=== PATIENT | male | born 1995 | race Caucasian/White ===

== ENCOUNTER 2016-06-08 21:19 | Inpatient (IN) | payer OTHER ==
[~2016-06-08] VITALS: Ht 172.7 cm; Wt 113.0 kg
[2016-06-08] MEDS ORDERED: morphine 4 MG/ML VIAL IV STA (21:57)
[2016-06-08] MEDS ORDERED: SOD CHLORIDE 0.9% 1,000 ML IV STA (21:57)
[2016-06-08] MEDS ORDERED: ONDANSETRON 4 MG INJ IV STA (21:57)
--- NOTE | 2016-06-08 22:00 | ERD ---
ER Documentation Chief Complaint Date/Time DATE: 06/08/16 TIME: 21:59 Chief Complaint Right-sided abdominal pain today, vomiting HPI 21-year-old male presents here in emergency department for complaints of right lower quadrant abdominal pain started today with vomiting. Patient describes the pain as sharp pain, 6/10 scale, he radiates from the right lower quadrant to the right upper quadrant area. Patient's vomiting also. Patient does not have any blood in the vomit. Patient does not have any diarrhea or constipation. Patient apparently flank pain. Patient does not have any fever or chills. Patient does not have any sick contacts. Patient does not have any constipation. Patient denies hematuria or dysuria. Patient did not take any medications to help with symptoms. ROS All systems reviewed and are negative except as per history of present illness. Medications Home Meds Reported Medications [none] Unknown Strength No Conflict Check 06/08/16 Allergies Allergies: Coded Allergies: No Known Allergy (Unverified , 06/08/16) PMhx/Soc Medical and Surgical Hx: pt denies Medical Hx History of Surgery: Yes (Left knee surgery) Anesthesia Reaction: No Hx Neurological Disorder: No Hx Respiratory Disorders: No Hx Cardiac Disorders: No Hx Psychiatric Problems: No Hx Miscellaneous Medical Probl: No Hx Alcohol Use: Yes (occassional drinker) Hx Substance Use: Yes (marijuana) Hx Tobacco Use: No Smoking Status: Current some day smoker FmHx Family History: No coronary disease, No diabetes, No other Physical Exam Vitals Vital Signs Date Time Temp Pulse Resp B/P Pulse Ox O2 Delivery O2 Flow Rate FiO2 06/08/16 21:22 98.9 89 18 126/87 100 Physical Exam GENERAL: The patient is well developed and appropriate for usual state of health, in no apparent distress. CHEST: Clear to auscultation bilaterally. There are no rales, wheezes or rhonchi. HEART: Regular rate and rhythm. No murmurs, clicks, rubs or gallops. No S3 or S4. ABDOMEN: Soft, right lower quadrant tenderness noted. Good bowel sounds. No rebound or guarding. No gross peritonitis. No gross organomegaly or masses. No Douglas sign. BACK: No midline or flank tenderness. EXTREMITIES: Equal pulses bilaterally. There is no peripheral clubbing, cyanosis or edema. No focal swelling or erythema. Full range of motion. Grossly neurovascularly intact. NEURO: Alert and oriented. Cranial nerves 2-12 intact. Motor strength in all 4 extremities with 5/5 strength. Sensation grossly intact. Normal speech and gait. SKIN: There is no apparent rash or petechia. The skin is warm and dry. HEMATOLOGIC AND LYMPHATIC: There is no evidence of excessive bruising or lymphedema. No gross cervical, axillary, or inguinal lymphadenopathy. Result Diagram: 06/08/16220906/08/162209 Results 24 hrs Laboratory Tests Test 06/08/16 22:08 06/08/16 22:10 Urine Bilirubin NEGATIVE Urine Clarity CLEAR Urine Color LT. YELLOW Urine Glucose NEGATIVE% Urine Hemoglobin NEGATIVE Urine Ketones 15 Urine Leukocyte Esterase NEGATIVE Urine Nitrite NEGATIVE Urine Specific [place] 1.015 Urine Total Protein NEGATIVE Urine Urobilinogen 1.0 E.U./dL Urine pH 7.5 Alanine Aminotransferase (ALT/SGPT) 40IU/L Albumin 5.1g/dl Albumin/Globulin Ratio 1.30 Alkaline Phosphatase 68IU/L Anion Gap 20 Aspartate Amino Transf (AST/SGOT) 30IU/L Blood Urea Nitrogen 11mg/dl Calcium Level 10.2mg/dl Carbon Dioxide Level 24mmol/L Chloride Level 102mmol/L Creatinine 0.86mg/dl Direct Bilirubin 0.00mg/dl Globulin 3.90g/dl Glucose Level 106mg/dl Hematocrit 42.9% Hemoglobin 15.1g/dl Indirect Bilirubin 0.6mg/dl Lipase 55U/L Mean Corpuscular Hemoglobin 30.9pg Mean Corpuscular Hemoglobin Concent 35.2g/dl Mean Corpuscular Volume 87.9fl Mean Platelet Volume 9.3fl Platelet Count 42646^3/UL Potassium Level 3.3mmol/L Red Blood Count 4.8810^6/ul Red Cell Distribution Width 12.1% Sodium Level 143mmol/L Total Bilirubin 0.6mg/dl Total Protein 9.0g/dl White Blood Count 22.110^3/ul Current Medications Medications (Trade) Dose Ordered Sig/Katerina Route PRN Reason Start Time Stop Time Status Last Admin Dose Admin Sodium Chloride (NS) 1,000 ml @ 1,000 mls/hr Q1H STAT IV 06/08/16 21:57 06/08/16 22:56 DC 06/08/16 22:21 Morphine Sulfate (morphine) 4 mg ONCE STAT IV 06/08/16 21:57 06/08/16 21:58 DC 06/08/16 22:15 Ondansetron HCl (Zofran Inj) 4 mg ONCE STAT IV 06/08/16 21:57 06/08/16 21:58 DC 06/08/16 22:15 Patient was given medication for pain here in emergency department, after treatment, patient verbalized feeling much better. Patient's pain is improved.Patient was given Zofran here in the emergency department. After treatment, patient was able to tolerate po fluids here in the emergency department without any vomiting. There is no signs and symptoms of dehydration. Zosyn started here in emergency department. PROCEDURE: CT Abdomen and Pelvis without contrast. CLINICAL INDICATION: Abdominal and pelvic pain. TECHNIQUE: CT scan of the abdomen and pelvis without contrast was performed. Coronal and sagittal reformatted images were obtained from the axial source images. Images were reviewed on a high-resolution PACS workstation. Total exam DLP is 1501.36 mGy-cm. CTDIvol is 22.88 mGy. One or more of the following dose reduction techniques were used: Automated exposure control, adjustment of the mA and/or kV according to patient size, use of iterative reconstruction technique. COMPARISON: None. FINDINGS: The lung bases are normal. There is no pleural effusion. The liver is normal in size and attenuation. There is no focal hepatic lesion. The gallbladder and bile ducts are normal. The spleen is normal in size. There is no focal splenic lesion. Both adrenals are normal with no enlargement or mass. The pancreas is unremarkable with no mass or evidence of pancreatitis. There is no renal mass or hydronephrosis. There is no renal calculus or ureteral calculus. The abdominal aorta is not dilated. There is no retroperitoneal lymphadenopathy or mass. There is no pelvic lymphadenopathy or mass. The bladder and distal ureters are normal. The appendix is mildly dilated measuring 9 mm in diameter. There is mild surrounding mesenteric edema consistent with appendicitis. There is no fluid collection or mass to suggest abscess. There is mild diverticulosis of the colon. There is no evidence of diverticulitis. The bowel and mesentery are otherwise normal. There is no free fluid or free gas. The osseous structures are unremarkable with no fracture or lytic lesion. IMPRESSION: 1. Early acute appendicitis. 2. No abscess. 3. Mild diverticulosis of the colon. 4. Otherwise normal noncontrast CT scan of the abdomen and pelvis. RPTAT: QQ .Eber Hays MD, Date Time Electronically viewed and signed by .Eber Hays MD, on 06/08/2016 22:46 Procedures/MDM Medical Decision Making: No symptoms would like is consistent with acute appendicitis. Patient has elevated white count at 22,000 consistent with this infection. Patient is to be admitted to the hospital for further evaluation, possible surgical treatment. I spoke to Dr. Garcia, my attending physician, will facilitate patient's admission to the hospital. Departure Diagnosis: Primary Impression: Appendicitis Appendicitis type: acute appendicitis Acute appendicitis type: unspecified acute appendicitis type Qualified Code: K35.80 - Acute appendicitis, unspecified acute appendicitis type Condition: LEA Liu NP Jun 08, 2016 22:00
[2016-06-08 22:29] LABS: ALBUMIN 5.1 g/dl (3.3-4.9)
[2016-06-08 22:31] LABS: BILIRUBIN,INDIRECT 0.6 mg/dl (0-1.1); BILIRUBIN,TOTAL 0.6 mg/dl (0.2-1.3); CREATININE 0.86 mg/dl (0.61-1.24)
[2016-06-08 22:32] LABS: ALBUMIN/GLOBULIN RATIO 1.3; CALCIUM 10.2 mg/dl (8.4-10.2)
[2016-06-08 22:40] LABS: POTASSIUM 3.3 mmol/L (3.5-5.1)
[2016-06-08 22:45] LABS: HEMATOCRIT 42.9 % (42.0-52.0); HEMOGLOBIN 15.1 g/dl (14.0-18.0); MEAN CORPUSCULAR HEMOGLOBIN 30.9 pg (29.0-33.0); MEAN CORPUSCULAR HGB CONC 35.2 g/dl (32.0-37.0); MEAN CORPUSCULAR VOLUME 87.9 fl (82.0-101.0); MEAN PLATELET VOLUME 9.3 fl (7.4-10.4); PLATELET COUNT 226 10^3/UL (140-440); RED BLOOD COUNT 4.88 10^6/ul (4.70-6.10); RED CELL DISTRIBUTION WIDTH 12.1 % (11.5-14.5); UNCORRECTED WBC 22.1 10^3/ul (4.8-10.8); WHITE BLOOD COUNT 22.1 10^3/ul (4.8-10.8)
[2016-06-08 22:46] LABS: CONDITION 1; LH ANALYZER COMMENTS 1; SUSPECT 1
--- NOTE | 2016-06-08 22:46 | RADRPT ---
PROCEDURE: CT Abdomen and Pelvis without contrast. CLINICAL INDICATION: Abdominal and pelvic pain. TECHNIQUE: CT scan of the abdomen and pelvis without contrast was performed. Coronal and sagittal reformatted images were obtained from the axial source images. Images were reviewed on a high-resolu [employer] PACS workstation. Total exam DLP is 1501.36 mGy-cm. CTDIvol is 22.88 mGy. One or more of the following dose reduction techniques were used: Automated exposure control, adjustment of the mA and/ or kV according to patient size, use of iterative reconstruction technique. COMPARISON: None. FINDINGS: The lung bases are normal. There is no pleural effusion. The liver is normal in size and attenuation. There is no focal hepatic lesion. The gallbladder and bile ducts are normal. The spleen is normal in size. There is no focal splenic lesion. Both adrenals are normal with no enlargement or mass. The pancreas is unremarkable with no mass or evidence of pancreatitis. There is no renal mass or hydronephrosis. There is no renal calculus or ureteral calculus. The abdominal aorta is not dilated. There is no retroperitoneal lymphadenopathy or mass. There is no pelvic lymphadenopathy or mass. The bladder and distal ureters are normal. The appendix is mildly dilated measuring 9 mm in diameter. There is mild surrounding mesenteric logan ma consistent with appendicitis. There is no fluid collection or mass to suggest abscess. There is mild diverticulosis of the colon. There is no evidence of diverticulitis. The bowel and m esentery are otherwise normal. There is no free fluid or free gas. The osseous structures are unremarkable with no fracture or lytic lesion. IMPRESSION: 1. Early acute appendicitis. 2. No abscess. 3. Mild diverticulosis of the colon. 4. Otherwise normal noncontrast CT scan of the abdomen and pelvis. RPTAT: QQ .Eber Hays MD, MD Date Time Electronically viewed and signed by .Eber Hays MD, on 06/08/2016 22:46 .R/
[2016-06-08 22:55] LABS: ADD UMIC NO; URINE BILIRUBIN (Dip) NEGATIVE (NEGATIVE); URINE BLOOD (Dip) NEGATIVE (NEGATIVE); URINE COLOR LT. YELLOW (YELLOW); URINE GLUCOSE (Dip) NEGATIVE (NEGATIVE); URINE KETONES (Dip) 15 (NEGATIVE); URINE LEUKOCYTE ESTERASE (Dip) NEGATIVE (NEGATIVE); URINE NITRITE (Dip) NEGATIVE (NEGATIVE); URINE TOTAL PROTEIN (Dip) NEGATIVE (NEGATIVE); URINE UROBILINOGEN (Dip) 1.0 E.U./dL (0.1-1.0)
[2016-06-08 23:21] LABS: INR 0.9; PROTIME 12.1 Sec (12.2-14.2); PT RATIO 0.9
[2016-06-08] MEDS ORDERED: PIPER-TAZO 3.375 GM IV (PMX) 100 ML IVPB ONE (23:30)
--- NOTE | 2016-06-08 23:30 | EN ---
Date/Time of Note Date/Time of Note DATE: 06/08/16 TIME: 23:27 ER Progress Note HPI: 21-year-old here for abdominal pain, nausea, and anorexia. Symptoms began this afternoon. Last p.o. intake was at 4 PM today. Past medical history: None Physical exam: GENERAL: Well-developed, well-nourished, well-hydrated, in no apparent distress , looks nontoxic in appearance HEENT: Moist mucous membranes, pink conjunctiva, no cervical spine tenderness or step-off deformities, no goiter, no jaundice or icterus, extraocular movements intact without pain. No submandibular induration, and no pharyngeal erythema NEURO: Alert and oriented 3, cranial nerves II through XII intact bilaterally, pupils equal round reactive to light, no focal deficits or facial asymmetry, sensation intact distally Strength 5/5 in upper and lower extremities bilaterally CARDIAC: Regular rate and rhythm, no murmurs rubs or gallops LUNGS: Clear bilaterally no wheezing crackles or stridor ABDOMEN: Positive McBurney's point tenderness with voluntary guarding, no rigidity or rebound. SKIN: Warm and dry to touch, no abrasions, contusions, or hematomas, no lacerations, no ecchymosis, no target lesions, and without ulcers EXTREMITIES: No clubbing cyanosis or edema, calves are bilaterally symmetrical, no Homans sign, no popliteal cord sign. Distal pulses equal and bilateral PSYCH: Normal affect without agitation or irritability Medical decision making: CT scan was positive for acute early appendicitis with a 9 mm dilated appendix and mesenteric inflammatory changes. Please refer to radiologist dictation for full report. Patient received piperacillin and tazobactam 3.375 g IV, IV fluids and IV opioid analgesics. Surgical consultation was obtained by me from the emergency department. I spoke to Dr. Lucia regarding the patient's CT scan findings and his symptoms. He agreed to consult the patient. Diagnostic impression: Acute appendicitis LOULOU SLAUGHTER MD Jun 08, 2016 23:30
[2016-06-08] MEDS ORDERED: SOD CHLORIDE 0.9% 1,000 ML IV SCH (23:40)
--- NOTE | 2016-06-08 23:40 | HP ---
Date/Time of Note Date/Time of Note DATE: 06/08/16 TIME: 23:34 Assessment/Plan VTE Prophylaxis VTE Prophylaxis Intervention: SCD's Assessment/Plan Assessment/Plan 21 yo male with no significant past medical history who complains of acute abdominal pain. 1. Acute appendicitis - will admit the patient to med/surg, Dr. Lucia (gen surgery) has been notified, IVF, c/w zosyn,, pain medications, NPO for lap vs open appy 2. Leukocytosis 2/2 #1 - see #1 3. Gi ppx - pepcid IV 4. DVT ppx - scds answered all of his questions. as per clinical course. this history and physical took greater then 45 minutes to complete HPI/ROS Admit Date/Time Admit Date/Time 06/08/2016, 11:34 pm Hx of Present Illness 21 yo male with no significant past medical history who complains of acute abdominal pain. He states that the pain is in the right lower and upper quadrants. It started about 3 1/2 hours prior to arrival to [facility] ER. The pain is sharp/stabbing, constant, associated with 5 episodes of bilious vomitus , chills, pain with movement, no alleviation with taking pepto-bismol, with dizziness. Denies any blunt trauma, or ingestion of caustic substances. He denies any chest pain, shortness of breath, headaches/urinary bowel irregularities, fevers, loss of consciousness, diarrhea/constipation or other constitutional symptoms. ED course: IV zofran, IVF, Zosyn, pain medications ROS 14 point review of systems completed, please refer to HPI for any positive findings PMH/Family/Social Past Medical History Medical History: no pertinent history Past Surgical History right knee repair x 2 Family History Significant Family History: asthma (brother) Social History Alcohol Use: occasionally Smoking Status: Current some day smoker Drug Use: marijuana Exam/Review of Systems Vital Signs Vitals Vital Signs Date Time Temp Pulse Resp B/P Pulse Ox O2 Delivery O2 Flow Rate FiO2 06/08/16 21:22 98.9 89 18 126/87 100 Exam Exam Gen Therese: mild to moderate distress 2/2 abdominal pain, AAOx4 HEENT: NC/AT, PERRLA, EOMI, no pharyngeal erythema, no tonsillar exudates, no lymphadenopathy, no JVD, no carotid bruits NECK: supple, no thyromegaly THORAX: symmetrical, no obvious deformities CV: S1S2, RRR, no M/G/R Lungs: CTAB no W/C/R/R Abd: soft, TTP RLQ, +rosvings sign, + obturators sign, ND, +BS, + rebound tenderness, no guarding, neg HSM EXT: no edema, no ecchymosis, no clubbing, FROM Neuro: CN II-XII grossly intact, no focal deficits Psych: good mentation, alert and oriented, good mood and affect Skin: C/D/I Labs Result Diagram: 06/08/16220906/08/162209 Medications Medications Current Medications Piperacillin Sod/ Tazobactam Sod (Zosyn 3.375gm/ 100 ml (Pmx)) 100 ml @ 200 mls /hr ONCE ONCE IVPB ; Start 06/08/16 at 23:30; Stop 06/08/16 at 23:[address] abd/pelvis IMPRESSION: 1. Early acute appendicitis. 2. No abscess. 3. Mild diverticulosis of the colon. 4. Otherwise normal noncontrast CT scan of the abdomen and pelvis. BARNEY HILL MD Jun 08, 2016 23:40
[2016-06-08 23:42] LABS: EOSINOPHILS # 0.2 10^3/ul (0.0-0.5); LYMPHOCYTES # 3.1 10^3/ul (0.8-2.9); MONOCYTE # 1.3 10^3/ul (0.3-0.9); PLATELET ESTIMATE PLT APPEAR ADEQUATE
[2016-06-09] VITALS (27 sets, daily range): BP systolic 97–145; BP diastolic 54–81; PULSE 62–89; RESP 12–21; TEMP 98.8; Ht 172.7 cm; Wt 113.0 kg
[2016-06-09] MEDS ORDERED: ACETAMINOPHEN 650 MG SUPP PR PRN
[2016-06-09] MEDS ORDERED: NACL 0.9% 3 ML SYG IV SCH
[2016-06-09] MEDS: PIPER-TAZO 3.375 GM IV (PMX) 100 ML IVPB SCH ×5 (00:05→23:25)
[2016-06-09] MEDS: morphine 2 MG INJ IV PRN ×4 (01:03→23:30)
[2016-06-09 05:05] LABS: BASOPHILS % 0.1 % (0.0-2.0); CONDITION 1; EOSINOPHILS % 0.1 % (0.0-7.0); HEMOGLOBIN 13.7 g/dl (14.0-18.0); LYMPHOCYTES # 1.5 10^3/ul (0.8-2.9); LYMPHOCYTES % 8.4 % (15.0-51.0); MEAN CORPUSCULAR HEMOGLOBIN 31.2 pg (29.0-33.0); MEAN CORPUSCULAR HGB CONC 35.2 g/dl (32.0-37.0); MEAN CORPUSCULAR VOLUME 88.6 fl (82.0-101.0); MONOCYTE # 0.9 10^3/ul (0.3-0.9); MONOCYTES % 4.9 % (0.0-11.0); NEUTROPHILS % 86.5 % (39.0-77.0); PLATELET COUNT 202 10^3/UL (140-440); RED CELL DISTRIBUTION WIDTH 11.8 % (11.5-14.5); UNCORRECTED WBC 17.4 10^3/ul (4.8-10.8); WHITE BLOOD COUNT 17.4 10^3/ul (4.8-10.8)
[2016-06-09 05:34] LABS: POTASSIUM 4.2 mmol/L (3.5-5.1)
[2016-06-09 05:37] LABS: CALCIUM 9.1 mg/dl (8.4-10.2); CREATININE 0.82 mg/dl (0.61-1.24)
[2016-06-09] MEDS ORDERED: SUCCINYLCHOLINE CHLORIDE 100 MG/5 ML SYG IV ONE (07:00)
[2016-06-09] MEDS ORDERED: CEFAZOLIN 1 GM INJ ONE ×2 (07:00→10:56)
[2016-06-09] MEDS ORDERED: FAMOTIDINE 20 MG INJ IV SCH (09:00)
[2016-06-09] MEDS ORDERED: BUPIVACAINE 0.25%/EPI (SDV) 30 ML INJ ONE (10:23)
[2016-06-09] MEDS ORDERED: LIDOCAINE 1% (MPF) 30 ML INJ ONE (10:23)
[2016-06-09] MEDS ORDERED: D5-NS + KCL 20 MEQ 1,000 ML IV SCH (10:38)
[2016-06-09] MEDS ORDERED: ROCURONIUM 50 MG INJ ONE (10:40)
[2016-06-09] MEDS ORDERED: DEXAMETHASONE 4 MG/ML 1 ML INJ ONE (10:40)
[2016-06-09] MEDS ORDERED: ONDANSETRON 4 MG INJ ONE (10:40)
[2016-06-09] MEDS ORDERED: PROPOFOL 20 ML ONE (10:40)
[2016-06-09] MEDS ORDERED: MIDAZOLAM 1 MG/ML 2 ML INJ ONE (10:55)
[2016-06-09] MEDS ORDERED: HYDROmorphONE (0.2 MG/ML) 10ML SYG IV PRN ×3 (11:00)
[2016-06-09] MEDS ORDERED: KETOROLAC 30 MG INJ IV ONE (11:00)
[2016-06-09] MEDS ORDERED: MEPERIDINE 25 MG INJ IV PRN (11:00)
[2016-06-09] MEDS ORDERED: DIPHENHYDRAMINE 50 MG INJ IV PRN (11:00)
[2016-06-09] MEDS ORDERED: ONDANSETRON 4 MG INJ IV PRN ×3 (11:00)
[2016-06-09] MEDS ORDERED: FENTAnyl 50 MCG/ML VIAL IV PRN (11:00)
[2016-06-09] MEDS ORDERED: ACETAMINOPHEN 325 MG TAB PO PRN (11:00)
--- NOTE | 2016-06-09 11:07 | PN ---
Date/Time of Note Date/Time of Note DATE: 06/09/16 TIME: 11:04 Assessment/Plan VTE Prophylaxis VTE Prophylaxis Intervention: LMWH Lines/Catheters IV Catheter Type (from [facility]): Peripheral IV Assessment/Plan Chief Complaint/Hosp Course Assessment/Plan 1. Acute appendicitis -General surgery has been consulted, continue IVF, c/w zosyn,, pain medications, NPO [place] for laparoscopic versus open appendectomy today 2. Leukocytosis 2/2 #1 - continue Zosyn, follow up CBC in a.m. 3. Gi ppx - pepcid IV 4. DVT ppx - scds We'll continue monitor patient closely for recommendation management treatment as per the course On to discharge home tomorrow on 06/10/2016 if leukocytosis has improved and cleared by surgery Problems: Subjective 24 Hr Interval Summary Free Text/Dictation Patient has gone to operating room According to the nurse patient was mildly tender right lower quadrant Nothing by mouth Exam/Review of Systems Vital Signs Vitals Vital Signs Date Time Temp Pulse Resp B/P Pulse Ox O2 Delivery O2 Flow Rate FiO2 06/09/16 08:00 98.4 71 20 110/59 97 06/09/16 01:37 Room Air Intake and Output 06/08/16 06/08/16 06/09/16 15:00 23:00 07:00 Output Total 200 ml Balance -200 ml Exam Deferred since patient has gone to OR for surgical intervention We'll examine patient is status post surgery Results Result Diagram: 06/09/16 0422 06/09/16 0423 Results 24 hrs Laboratory Tests Test 06/08/16 22:08 06/08/16 22:10 06/09/16 04:22 06/09/16 04:23 Urine Bilirubin NEGATIVE Urine Clarity CLEAR Urine Color LT. YELLOW Urine Glucose NEGATIVE Urine Hemoglobin NEGATIVE Urine Ketones 15 Urine Leukocyte Esterase NEGATIVE Urine Nitrite NEGATIVE Urine Specific [place] 1.015 Urine Total Protein NEGATIVE Urine Urobilinogen 1.0 E.U./dL Urine pH 7.5 Alanine Aminotransferase (ALT/SGPT) 40 Albumin 5.1 H Albumin/Globulin Ratio 1.30 Alkaline Phosphatase 68 Anion Gap 20 H 17 H Aspartate Amino Transf (AST/SGOT) 30 Band Neutrophils % 2.0 Blood Urea Nitrogen 11 9 Calcium Level 10.2 9.1 Carbon Dioxide Level 24 25 Chloride Level 102 105 Creatinine 0.86 0.82 Direct Bilirubin 0.00 Eosinophils # 0.2 0.0 Eosinophils % 1.0 0.1 Globulin 3.90 H Glucose Level 106 92 Hematocrit 42.9 39.0 L Hemoglobin 15.1 13.7 L INR International Normalized Ratio 0.90 Indirect Bilirubin 0.6 Lipase 55 Lymphocytes # 3.1 H 1.5 Lymphocytes % 14.0 L 8.4 L Mean Corpuscular Hemoglobin 30.9 31.2 Mean Corpuscular Hemoglobin Concent 35.2 35.2 Mean Corpuscular Volume 87.9 88.6 Mean Platelet Volume 9.3 9.0 Monocytes # 1.3 H 0.9 Monocytes % 6.0 4.9 Neutrophils # 17.0 H 15.0 H Neutrophils % 77.0 86.5 H Platelet Count 226 202 Platelet Estimate PLT APPEAR ADEQUATE Potassium Level 3.3 L 4.2 Prothrombin Time 12.1 L Prothrombin Time Ratio 0.9 Red Blood Count 4.88 4.40 L Red Cell Distribution Width 12.1 11.8 Sodium Level 143 143 Total Bilirubin 0.6 Total Protein 9.0 H White Blood Count 22.1 H 17.4 #H Basophils # 0.0 Basophils % 0.1 Nucleated Red Blood Cells # 0.0 Nucleated Red Blood Cells % 0.0 Medications Medications Current Medications Piperacillin Sod/ Tazobactam Sod (Zosyn 3.375gm/ 100 ml (Pmx)) 100 ml @ 200 mls /hr Q6 IVPB ; Start 06/09/16 at 12:00 Ondansetron HCl (Zofran Inj) 4 mg Q6H PRN IV NAUSEA AND/OR VOMITING; Start at 11:00 Morphine Sulfate (morphine) 2 mg Q2H PRN IV PAIN LEVEL 8-10; Start 06/09/16 at 11:00 Oxycodone/ Acetaminophen (Percocet (5/ 325)) 1 tab Q6H PRN PO PAIN LEVEL 4-7; Start 06/09/16 at 11:00 Enoxaparin Sodium (Lovenox) 40 mg DAILY@07 SC ; Start 06/10/16 at 07:00 KESHIA BERNAL MD Jun 09, 2016 11:07
[2016-06-09] MEDS ORDERED: ROPIVACAINE 0.5 % 30 ML VIAL ONE (11:09)
[2016-06-09] MEDS ORDERED: NEOSTIGMINE 3 MG/3 ML SYRINGE ONE (11:20)
[2016-06-09] MEDS ORDERED: GLYCOPYRROLATE 0.4 MG INJ ONE (11:20)
--- NOTE | 2016-06-09 15:27 | CONS ---
DATE OF ADMISSION: 06/08/2016 DATE OF CONSULTATION: 06/09/2016 HISTORY OF PRESENT ILLNESS: Mr. Zayas is a 21-year-old male who was in his usual state of healt h until he developed acute onset of generalized abdominal pain yesterday evening. The symptoms wors ened and localized to right lower quadrant and he had nausea but no emesis. He presented to the ER at [facility] where his workup was consistent with acute appendicitis. He denies prior epi sodes. PAST MEDICAL HISTORY: Noncontributory. PAST SURGICAL HISTORY: Right knee surgery x2. MEDICATIONS: None. ALLERGIES: NO KNOWN DRUG ALLERGIES. SOCIAL HISTORY: He drinks occasionally, smokes occasionally. ALLERGIES: NO KNOWN DRUG ALLERGIES. PHYSICAL EXAMINATION: GENERAL: He is a well-developed, developed overweight male in no apparent distress. VITAL SIGNS: He is currently afebrile. Vital signs stable. CHEST: Clear to auscultation bilaterally. HEART: Regular rhythm. ABDOMEN: Soft, nondistended but significant right lower quadrant tenderness. His CT is consistent with acute appendicitis. LABORATORY DATA: Reveal a white count of 17, hematocrit of 39 and platelets of 202. Sodium 143, po tassium 4.2, chloride 105, CO2 of 25, BUN and creatinine 9 and 0.8 and glucose 92. ASSESSMENT AND PLAN: Mr. Zayas is a 21-year-old male with acute appendicitis. We discussed lap aroscopic, possible open appendectomy. All benefits, risks, alternatives were discussed in detail, questions answered. The patient elects to proceed. Dictated By: SANDY ORTIZ/PEGGY Conf#: [id number] DID#: [id number]
--- NOTE | 2016-06-09 16:49 | OPR ---
DATE OF OPERATION: 06/09/2016 PREOPERATIVE DIAGNOSIS: Appendicitis, acute. POSTOPERATIVE DIAGNOSIS: Appendicitis, acute. PROCEDURE: Laparoscopic appendectomy. SURGEON: Sandy Lucia MD RESIDENTIAL FINISH CARPENTER: None. ANESTHESIA: General endotracheal. ANESTHESIOLOGIST: Dr. Scott. ESTIMATED BLOOD LOSS: 100 mL. COMPLICATIONS: None. SPECIMENS: Appendix. FINDINGS: Acute appendicitis. INDICATIONS: Patient is a 21-year-old male who developed acute onset of abdominal pain that localiz ed to his right lower quadrant. He presented to the ER where his workup was consistent with acute a ppendicitis. I was called for consultation. I discussed laparoscopic, possible open, appendectomy with the patient. All benefits, risks, alternatives were discussed in detail. Questions answered. The patient elected to proceed. DESCRIPTION OF PROCEDURE: Patient was brought to the operating room and placed supine on the table. After preoperative antibiotics and SCDs were placed, the patient was intubated, and the abdomen wa s cleaned, prepped and draped in sterile fashion. All incisions were infiltrated with 1% lidocaine with epinephrine and 0.5% Marcaine prior to incision. A 5-mm incision was made on the umbilicus. Using a 5 mm laparoscope-containing trocar, the abdomen was entered under direct vision and insufflated to 15 mmHg CO2. The following trocars were then darrell josselyn under direct vision: right lower quadrant 5 mm and a left lower quadrant 12 mm. Emanating from the cecum was obvious acute appendicitis. It was not ruptured or perforated. I was able to make a rent in the mesentery and divide the appendix at the base of the cecum with a 35-mm Endo linear cut ter blue load. The appendix could then be elevated, and the mesentery was then divided with a 35-mm Endo linear cutter white load. There was some oozing from the staple lines, which was controlled w ith 10-mm clips. After control of the bleeding, I visualized my staple lines. They were hemostatic . I then placed the appendix in an EndoCatch bag and removed from the 12-mm trocar site. The fasci a of the 12-mm trocar site was closed with 0 Vicryl using an EndoClose device under direct vision. At this point, the abdomen was completely desufflated. All trocars removed. Skin incisions were al l closed with 4-0 Monocryl, Mastisol, and Steri-Strips. Patient tolerated procedure well, was extubated in the OR, and transferred to recovery room in stabl e condition. Dictated By: SANDY ORTIZ/PEGGY Conf#: [id number] DID#: [id number]
[2016-06-09] MEDS: OXYCODONE/ACETAMINOPHEN (5/325) TAB PO PRN (19:17)
[2016-06-10] MEDS: PIPER-TAZO 3.375 GM IV (PMX) 100 ML IVPB SCH ×2 (05:04→11:51)
[2016-06-10 05:33] VITALS: BP 121/75; PULSE 63; RESP 18
[2016-06-10] MEDS: OXYCODONE/ACETAMINOPHEN (5/325) TAB PO PRN ×3 (06:12→17:36)
[2016-06-10] MEDS ORDERED: ENOXAPARIN 40 MG/0.4 ML SYG SC SCH (07:00)
[2016-06-10 07:48] VITALS: BP 124/74; RESP 18
--- NOTE | 2016-06-10 10:33 | PDOCDIS ---
Discharge Instructions CONDITION Patient Condition: Good HOME CARE INSTRUCTIONS: Diet Instructions: Regular ACTIVITY: Activity Restrictions: Slowly Increase Activity Rest between Activity Avoid heavy lifting Avoid Heavy Housework Bathing Restrictions: Shower FOLLOW UP/APPOINTMENTS Appointments Follow up with Dr. Lucia in one week SCHOOL/WORK RELEASE May return to School/Work on: Jun 17, 2016 May return to School/Work with: With Restrictions (Light activity x 3 weeks , Do not lift anything heavier than 15 lbs ) KESHIA BERNAL MD Jun 10, 2016 10:33
[2016-06-10] MEDS ORDERED: LEVO500T10 PO (10:36)
[2016-06-10] MEDS ORDERED: SIME80TA PO (10:36)
[2016-06-10 11:53] LABS: BASOPHILS % 0.1 % (0.0-2.0); EOSINOPHILS % 0.2 % (0.0-7.0); HEMATOCRIT 40.9 % (42.0-52.0); HEMOGLOBIN 14.2 g/dl (14.0-18.0); LYMPHOCYTES # 2.6 10^3/ul (0.8-2.9); LYMPHOCYTES % 23.3 % (15.0-51.0); MEAN CORPUSCULAR HGB CONC 34.8 g/dl (32.0-37.0); MEAN CORPUSCULAR VOLUME 89.2 fl (82.0-101.0); MEAN PLATELET VOLUME 8.9 fl (7.4-10.4); MONOCYTE # 0.6 10^3/ul (0.3-0.9); MONOCYTES % 5.6 % (0.0-11.0); NEUTROPHIL # 7.9 10^3/ul (1.6-7.5); NEUTROPHILS % 70.8 % (39.0-77.0); PLATELET COUNT 216 10^3/UL (140-440); RED BLOOD COUNT 4.59 10^6/ul (4.70-6.10); RED CELL DISTRIBUTION WIDTH 12.6 % (11.5-14.5); UNCORRECTED WBC 11.1 10^3/ul (4.8-10.8); WHITE BLOOD COUNT 11.1 10^3/ul (4.8-10.8)
[2016-06-10 12:05] LABS: CONDITION 1
== END 2016-06-10 18:30 | disposition home or self-care (01) | DRG 343 ==
LOC: FTE 21:19 → MS1 23:24
PROVIDERS: ADMIT Student in an Organized Health Care Education/Training Program; ATTEND Student in an Organized Health Care Education/Training Program
PROC: 0DTJ4ZZ Resection of Appendix, Percutaneous Endoscopic Approach (ICD-10-PCS; principal; 2016-06-09 10:30)
DX: K35.80 Unspecified acute appendicitis (principal); E66.9 Obesity, unspecified; Z68.37 Body mass index [BMI] 37.0-37.9, adult; Z72.0 Tobacco use
CPT/HCPCS: 36415; 74176; 80048; 80053; 81003; 83690; 85025; 85610; 88304; 96374; 96375; 96376; J0330; J0690; J1100; J1170; J1650; J1885; J2250; J2270; J2405; J2543; J2710; J2795; J3010; J7030